=== PATIENT | male | born 1940 | race Asian ===

== ENCOUNTER → 2017-01-14 | Outpatient (CLI) | payer MEDICARE, OTHER ==
--- NOTE | 2017-01-14 12:45 | REP ---
Bilateral carotid artery duplex ultrasound: Peak flow velocity analysis: RIGHT LEFT ICA. Peak flow velocity cm/sec 54 45 ICA Diastolic flow velocity cm/sec 24 18 ICA/CCA Ratio 0.72 0.43 There is intimal thickening in the distal common carotid arteries bilaterally. There is a small shallow atheromatous plaque at the origins of the internal carotid arteries and external carotid arteries bilaterally. Peak flow velocities are normal bilaterally. There is antegrade flow in the vertebral arteries bilaterally. Impression: There is less than 50% narrowing bilaterally. There is no significant stenosis on the right or left. Signed by Cassius Navas MD 01/14/2017 12:36 P
== END ==
LOC: M RAD 11:10
PROVIDERS: ATTEND Ophthalmology
DX: H53.122 Transient visual loss, left eye (principal); H53.19 Other subjective visual disturbances

== ENCOUNTER → 2017-01-23 | Outpatient (CLI) | payer MEDICARE, OTHER ==
--- NOTE | 2017-01-23 15:06 | REP ---
MRI IS THE ORBITS WITHOUT AND WITH IV GADOLINIUM: HISTORY: Vision loss left eye. TECHNIQUE: Axial sagittal and coronal imaging planes are utilized. T1 and T2-weighted sequences include turbo spin echo, spin echo and fat sat post gadolinium enhanced spin echo imaging. 7 mL of intravenous ProHance is administered, half-dose protocol. MRI FINDINGS: There is a small mucous retention cyst in the inferior aspect of the left maxillary sinus. This measures 9 mm. Paranasal sinuses are otherwise unremarkable. No intraorbital mass lesion is seen on either side. Optic chiasm and suprasellar cistern is unremarkable. There is no evidence of optic nerve lesion or abnormal focal optic nerve enhancement. Extraocular muscles are normal in contour signal intensity and course. IMPRESSION: Unremarkable MRI study of the orbits. Signed by Demetrio Balderas MD 01/23/2017 03:19 P
--- NOTE | 2017-01-23 15:07 | REP ---
MRI study of the brain without and with IV gadolinium: History: Vision loss left eye. Comparison CT study brain July 25, 2006. Technique: Axial and sagittal imaging planes are utilized for T1 and T2-weighted scans. Sequences include spin-echo, fast spin echo, FLAIR, and diffusion weighted sequences. Post gadolinium enhanced axial and coronal imaging planes are acquired as well with T1-weighted imaging. The gadolinium enhancement dose is 7 ml of intravenous ProHance , half-dose protocol. MRI findings: No bony calvarial lesion is seen. Craniocervical junction and upper cervical cord are normal in appearance. There is no MR evidence of significant paranasal sinus disease. Minimal mucosal changes are seen in the maxillary sinuses inferiorly. No intraorbital abnormality is seen. There is mild diffuse cerebral atrophy. There are periventricular and subcortical white matter foci of T2 hyperintensity consistent with small vessel changes in the supratentorial brain. There is no evidence of intracranial mass lesion. Diffusion weighted scans show no evidence of acute ischemia. No extra-axial fluid collection or midline shift is seen. No evidence of intracranial hemorrhage. On postcontrast images, enhancement is seen in normal vascular structures. No abnormal gadolinium enhancement is appreciated. Impression: Diffuse atrophy and small vessel changes. No acute intracranial abnormality. Signed by Demetrio Balderas MD 01/23/2017 03:19 P
== END ==
LOC: M RAD 12:30
PROVIDERS: ATTEND Ophthalmology
DX: H53.122 Transient visual loss, left eye (principal); H53.19 Other subjective visual disturbances
CPT/HCPCS: 70543; 70553; A9576

== ENCOUNTER → 2018-02-07 | Outpatient (CLI) | payer MEDICARE, OTHER ==
[2018-02-07 10:13] LABS: COLLAGEN EPINEPHRINE 135 SECONDS (74-162)
== END ==
LOC: M LAB 08:16
DX: H02.423 Myogenic ptosis of bilateral eyelids (principal)
CPT/HCPCS: 36415

== ENCOUNTER 2019-02-27 08:28 | Emergency (ER) | payer MEDICARE, OTHER ==
[~2019-02-27] VITALS: Ht 180.3 cm; Wt 79.5 kg
[2019-02-27] MEDS ORDERED: NEOSPORIN OINT 0.9 GM PKT (FLOOR STOCK) TOP ONE (08:45)
--- NOTE | 2019-02-27 09:38 | REP ---
LEFT HIP, AP PELVIS, THREE VIEWS: HISTORY: Pain. There is no acute fracture or dislocation. The joint spaces are normal in appearance. A calcified density is present adjacent to the left greater trochanter. This represents ligamentous or tendon calcification. IMPRESSION: There is no acute fracture or dislocation. Electronically Signed by Sherman Peter MD 02/27/2019 09:39 A
--- NOTE | 2019-02-27 09:41 | REP ---
LEFT HAND, FOUR VIEWS: HISTORY: Fall. There is no acute fracture or dislocation. There is narrowing of the metacarpal phalangeal, interphalangeal joint of the first digit and second through fifth interphalangeal and distal interphalangeal joints of the second through fifth digits. Osteophytes are present at the interphalangeal joint of the first digit and third through fifth intermediate and second through fifth distal interphalangeal joints. IMPRESSION: There is no acute fracture or dislocation. Electronically Signed by Sherman Peter MD 02/27/2019 09:50 A
--- NOTE | 2019-02-27 10:17 | REP ---
BILATERAL KNEES, NINE VIEWS: HISTORY: Pain. RIGHT KNEE: There is no acute fracture or dislocation. There is minimal narrowing of the medial knee joint space. The lateral knee joint space and patellofemoral joint space are normal in appearance. An osteophyte is present on the patella. IMPRESSION:There is no acute fracture or dislocation. LEFT KNEE: There is no acute fracture or dislocation. There is minimal narrowing of the medial knee joint space. The lateral knee joint space and patellofemoral joint space are normal in appearance. An osteophyte is present on the patella. IMPRESSION:Degenerative change as described above. Electronically Signed by Sherman Peter MD 02/27/2019 10:32 A
[2019-02-27 10:29] VITALS: BP 175/85
[2019-03-11] MEDS ORDERED: ELIQ5TAB PO (12:10)
[2019-03-11] MEDS ORDERED: LABE20TAB PO (12:10)
[2019-03-11] MEDS ORDERED: AZEL0.1S (12:10)
[2019-03-11] MEDS ORDERED: HYDR-3910 PO (12:10)
[2019-03-11] MEDS ORDERED: ASPI1TAB PO (12:10)
[2019-03-11] MEDS ORDERED: SIMV10TA2 PO (12:10)
[2019-03-11] MEDS ORDERED: AMLO5TAB6 PO (12:10)
== END 2019-02-27 10:32 | disposition home or self-care (01) ==
LOC: M ED 08:28
DX: S80.01XA Contusion of right knee, initial encounter (principal); S80.02XA Contusion of left knee, initial encounter; S70.02XA Contusion of left hip, initial encounter; S60.222A Contusion of left hand, initial encounter; W19.XXXA Unspecified fall, initial encounter; Y92.019 Unspecified place in single-family (private) house as the place of occurrence of the external cause

== ENCOUNTER 2019-03-18 10:07 | Day surgery (SDC) | payer MEDICARE, OTHER ==
[~2019-03-18] VITALS: Ht 177.8 cm; Wt 77.3 kg
[~2019-03-18 10:07] MED LIST: AMLO5TAB6 PO; ASPI1TAB PO; AZEL0.1S; ELIQ5TAB PO; HYDR-3910 PO; LABE20TAB PO; LIDOCAINE 2% INJ 100 MG/5 ML SDV (FOR ANES.) As Ordered ONE; NS 1,000 ML IV ONE; PROPOFOL 200 MG/20 ML VIAL As Ordered ONE; SIMV10TA2 PO
--- NOTE | 2019-03-18 11:26 | ROOR ---
Patient Name: Wei Lacy Procedure Date: 03/18/2019 11:02 AM Date of : 1940 Age: 78 Room: [facility] Gender: Male Note Status: Finalized Procedure: Total Colonoscopy to Cecum + Cold Snare Polypectomy Indications: Screening for colorectal malignant neoplasm Providers: Az Jones MD Referring MD: Ethan Mcmillan MD Requesting Provider: Medicines: Monitored Anesthesia Care Complications: No immediate complications. Procedure: Pre-Anesthesia Assessment: - The heart rate, respiratory rate, oxygen saturations, blood pressure, adequacy of pulmonary ventilation, and response to care were monitored throughout the procedure. The Colonoscope was introduced through the anus and advanced to the cecum, identified by appendiceal orifice and ileocecal valve. The colonoscopy was performed without difficulty. The patient tolerated the procedure well. The quality of the bowel preparation was excellent. Findings: The perianal and digital rectal examinations were normal. Non-bleeding internal hemorrhoids were found during retroflexion. The hemorrhoids were small and Grade I (internal hemorrhoids that do not prolapse). A small polyp was found in the mid ascending colon. The polyp was sessile. The polyp was removed with a cold snare. Resection and retrieval were complete. A small polyp was found at 60 cm proximal to the anus. The polyp was sessile. The polyp was removed with a cold snare. Resection and retrieval were complete. A small polyp was found in the rectum. The polyp was sessile. The polyp was removed with a jumbo cold forceps. Resection and retrieval were complete. The exam was otherwise without abnormality on direct and retroflexion views. Impression: - Non-bleeding internal hemorrhoids. - One small polyp in the mid ascending colon, removed with a cold snare. Resected and retrieved. - One small polyp at 60 cm proximal to the anus, removed with a cold snare. Resected and retrieved. - One small polyp in the rectum, removed with a jumbo cold forceps. Resected and retrieved. - The examination was otherwise normal on direct and retroflexion views. - The exam was otherwise normal to the cecum. Recommendation: - Patient has a contact number available for emergencies. The signs and symptoms of potential delayed complications were discussed with the patient. Return to normal activities tomorrow. Written discharge instructions were provided to the patient. - Discharge patient to home. - Continue present medications. - Await pathology results. - Telephone GI clinic for pathology results in 1 week. - Check Portal Online for Path Results.([email or web address] - Repeat colonoscopy for symptoms only. - Return to referring physician. - The findings and recommendations were discussed with the patient's family. Az Jones MD Az Jones MD 03/18/2019 11:25:41 AM Electronically signed by Az Jones MD Number of Addenda: 0 Note Initiated On: 03/18/2019 11:02 AM Estimated Blood Loss: Estimated blood loss: none.
[2019-03-18 11:45] VITALS: BP 187/83
== END 2019-03-18 11:54 | disposition home or self-care (01) ==
LOC: M OPP 10:07
PROVIDERS: ATTEND Internal Medicine Gastroenterology
DX: D12.2 Benign neoplasm of ascending colon (principal); K62.1 Rectal polyp; K64.0 First degree hemorrhoids; Z12.11 Encounter for screening for malignant neoplasm of colon

== ENCOUNTER → 2019-07-06 | Outpatient (CLI) | payer MEDICARE, OTHER ==
[~2019-07-06] MED LIST changes: +ASPI-523 PO; -ASPI1TAB PO; -LIDOCAINE 2% INJ 100 MG/5 ML SDV (FOR ANES.) As Ordered ONE; -NS 1,000 ML IV ONE; -PROPOFOL 200 MG/20 ML VIAL As Ordered ONE
[2019-07-06 08:10] LABS: BASO % 0.6 % (0.0-1.0); EOS # 0.2 10^3/uL (0.0-0.5); EOS % 4.1 % (0.0-3.0); HEMATOCRIT 41.1 % (42.0-52.0); HEMOGLOBIN 13.5 g/dl (13.5-17.5); LYMPH # 1.6 10^3/uL (1.5-5.0); LYMPH % 33.9 % (24.0-44.0); MEAN CORPUSCULAR HEMOGLOBIN 31.8 pg (27.0-33.0); MEAN CORPUSCULAR HGB CONC 32.8 g/dl (32.0-36.5); MEAN CORPUSCULAR VOLUME 96.9 fl (80.0-96.0); MONO # 0.5 10^3/uL (0.0-0.8); MONO % 9.3 % (0.0-5.0); NEUTROPHILS # 2.5 10^3/uL (1.5-8.5); NEUTROPHILS % 51.7 % (36.0-66.0); PLATELET COUNT, AUTOMATED 232 10^3/uL (150-450); RED BLOOD COUNT 4.24 10^6/uL (4.30-6.10); WHITE BLOOD COUNT 4.8 10^3/uL (4.0-10.0)
[2019-07-06 08:31] LABS: HEMOGLOBIN A1c 5.5 %
[2019-07-06 08:43] LABS: ALBUMIN 3.7 GM/DL (3.2-5.2); CALCIUM LEVEL 9.3 MG/DL (8.8-10.2); CREATININE FOR GFR 1.34 MG/DL (0.70-1.30); GLOMERULAR FILTRATION RATE 54.7 (>42); POTASSIUM SERUM 4.6 MEQ/L (3.5-5.1); TOTAL PROTEIN 7.2 GM/DL (6.4-8.2)
== END ==
LOC: M LAB 07:15
PROVIDERS: ATTEND Family Medicine
DX: I10 Essential (primary) hypertension (principal)

== ENCOUNTER 2020-03-05 13:31 | Emergency (ER) | payer MEDICARE, OTHER ==
[~2020-03-05] VITALS: Ht 180.3 cm; Wt 72.7 kg
[~2020-03-05 13:31] MED LIST changes: -SIMV10TA2 PO; +SIMV10TA21 PO
[2020-03-05 13:32] VITALS: BP 177/76
[2020-03-05] MEDS ORDERED: BOOSTRIX/ADACEL VACCINE (DIPHTH/PERTUSS/ACELL/TETANUS) 0.5ML SYR IM ONE (14:15)
--- NOTE | 2020-03-08 09:54 | REP ---
REASON: Pain in the neck after trauma. COMPARISON: None. Preliminary report given by Dr. Bragg. Motion artifact obscures the fine detail. There is a minimal 1-2 mm anterolisthesis C4 on C5. There is degenerative disc space narrowing at every level with mild anterior and posterior osteophytic ridging. The facet joints are well-aligned bilaterally. Vertebral body height and alignment is within normal limits. There is no evidence of acute fracture. There is no abnormal paraspinal soft tissue swelling. Degenerative changes are seen involving the facet joints and uncovertebral joints at multiple levels bilaterally. IMPRESSION: Chronic changes and exam limitations as described above. There is no evidence of acute fracture. Electronically Signed by Manfred Barrow DO 03/08/2020 12:25 P
--- NOTE | 2020-03-08 10:01 | REP ---
REASON FOR EXAM: Trauma. Comparison examination is 07/25/2006. Preliminary report was given by Dr. Bragg. The ventricles and sulci are within normal limits and essentially unchanged. The deep cerebral white matter is within normal limits and essentially unchanged. There is no shift of the midline structures. There are no acute extra-axial fluid collections. There is no change in the posterior fossa. There is no evidence of an acute intracranial hemorrhagic or nonhemorrhagic event. There is no skull fracture. The images paranasal sinuses and mastoid air cells are essentially unchanged remaining clear. IMPRESSION: No acute disease. Mild age-related changes status quo. Electronically Signed by Manfred Barrow DO 03/08/2020 12:25 P
== END 2020-03-05 14:40 | disposition home or self-care (01) ==
LOC: M ED 13:31
DX: S00.01XA Abrasion of scalp, initial encounter (principal); S50.311A Abrasion of right elbow, initial encounter; S50.312A Abrasion of left elbow, initial encounter; W11.XXXA Fall on and from ladder, initial encounter; Y99.8 Other external cause status; Y92.9 Unspecified place or not applicable; I10 Essential (primary) hypertension; F03.90 Unspecified dementia, unspecified severity, without behavioral disturbance, psychotic disturbance, mood disturbance, and anxiety; Z79.01 Long term (current) use of anticoagulants; Z79.82 Long term (current) use of aspirin; Z79.899 Other long term (current) drug therapy; Z87.891 Personal history of nicotine dependence

== ENCOUNTER → 2020-03-16 | Outpatient (CLI) | payer MEDICARE, OTHER ==
[2020-03-16 08:00] LABS: HEMATOCRIT 39.2 % (42.0-52.0); HEMOGLOBIN 13.2 g/dl (13.5-17.5); MEAN CORPUSCULAR HEMOGLOBIN 31.7 pg (27.0-33.0); MEAN CORPUSCULAR HGB CONC 33.7 g/dl (32.0-36.5); PLATELET COUNT, AUTOMATED 259 10^3/uL (150-450); RED BLOOD COUNT 4.17 10^6/uL (4.30-6.10); WHITE BLOOD COUNT 5.8 10^3/uL (4.0-10.0)
[2020-03-16 08:20] LABS: ALBUMIN 3.7 GM/DL (3.2-5.2); ALT/SGPT 29 U/L (12-78); BILIRUBIN,TOTAL 1.1 MG/DL (0.2-1.0); BLOOD UREA NITROGEN 14 MG/DL (7-18); CALCIUM LEVEL 8.9 MG/DL (8.8-10.2); CARBON DIOXIDE LEVEL 29 MEQ/L (21-32); CHLORIDE LEVEL 108 MEQ/L (98-107); CHOLESTEROL LEVEL 162 MG/DL (<200); CREATININE FOR GFR 1.11 MG/DL (0.70-1.30); GLOMERULAR FILTRATION RATE > 60.0 (>35); GLUCOSE, FASTING 95 MG/DL (70-100); HDL CHOLESTEROL 50 MG/DL (>40); LDL CHOLESTEROL 91 MG/DL (<100); NON-HDL-C 112 MG/DL; POTASSIUM SERUM 4.2 MEQ/L (3.5-5.1); SODIUM LEVEL 141 MEQ/L (136-145); TOTAL PROTEIN 7.4 GM/DL (6.4-8.2); TRIGLYCERIDES LEVEL 107 MG/DL (<150)
== END ==
LOC: M LAB 07:15
PROVIDERS: ATTEND Family Medicine
DX: I10 Essential (primary) hypertension (principal)

== ENCOUNTER → 2020-09-13 | Outpatient (CLI) | payer MEDICARE, OTHER ==
[~2020-09-13] MED LIST changes: +AMLO1TAB24 PO; -AMLO5TAB6 PO
[2020-09-13 09:38] LABS: HEMATOCRIT 43.4 % (42.0-52.0); HEMOGLOBIN 13.9 g/dl (13.5-17.5); MEAN CORPUSCULAR HEMOGLOBIN 30.7 pg (27.0-33.0); MEAN CORPUSCULAR VOLUME 95.8 fl (80.0-96.0); PLATELET COUNT, AUTOMATED 249 10^3/uL (150-450); RED BLOOD COUNT 4.53 10^6/uL (4.30-6.10); WHITE BLOOD COUNT 5.2 10^3/uL (4.0-10.0)
[2020-09-13 10:06] LABS: ALBUMIN 3.9 GM/DL (3.2-5.2); BILIRUBIN,TOTAL 0.8 MG/DL (0.2-1.0); CALCIUM LEVEL 9.4 MG/DL (8.8-10.2); CREATININE FOR GFR 1.27 MG/DL (0.70-1.30); GLOMERULAR FILTRATION RATE 58.1 (>35); POTASSIUM SERUM 4.8 MEQ/L (3.5-5.1); PROSTATIC SPECIFIC AG MONITOR 4.47 NG/ML (< 4.00); TOTAL PROTEIN 7.5 GM/DL (6.4-8.2)
== END ==
LOC: M LAB 09:06
PROVIDERS: ATTEND Family Medicine
DX: N40.0 Benign prostatic hyperplasia without lower urinary tract symptoms (principal)

== ENCOUNTER → 2021-03-07 | Outpatient (CLI) | payer MEDICARE, OTHER ==
[2021-03-07 11:48] LABS: HEMATOCRIT 43.4 % (42.0-52.0); HEMOGLOBIN 14.5 g/dl (13.5-17.5); MEAN CORPUSCULAR HEMOGLOBIN 31.9 pg (27.0-33.0); MEAN CORPUSCULAR HGB CONC 33.4 g/dl (32.0-36.5); MEAN CORPUSCULAR VOLUME 95.4 fl (80.0-96.0); PLATELET COUNT, AUTOMATED 235 10^3/uL (150-450); RED BLOOD COUNT 4.55 10^6/uL (4.30-6.10); WHITE BLOOD COUNT 8.6 10^3/uL (4.0-10.0)
[2021-03-07 12:29] LABS: APPEARANCE, URINE CLEAR (CLEAR); BACTERIA, URINE AUTO NEGATIVE (NEGATIVE); BILIRUBIN, URINE AUTO NEGATIVE (NEGATIVE); BLOOD, URINE BLOOD NEGATIVE (NEGATIVE); COLOR, URINE YELLOW (YELLOW); GLUCOSE, URINE (UA) AUTO NEGATIVE (NEGATIVE); KETONE, URINE AUTO NEGATIVE (NEGATIVE); LEUKOCYTE ESTERASE, URINE AUTO NEGATIVE (NEGATIVE); MUCUS, URINE SMALL (NEGATIVE); NITRITE, URINE AUTO NEGATIVE (NEGATIVE); PROTEIN, URINE AUTO NEGATIVE (NEGATIVE); RBC, URINE AUTO 1 /HPF (0-3); SPECIFIC GRAVITY URINE AUTO 1.015 (1.002-1.035); SQUAMOUS EPITHELIAL CELL UR AU 0 /HPF (0-6); UROBILINOGEN, URINE AUTO 0.2 mg/dL (0.0-2.0); WBC, URINE AUTO 1 /HPF (0-3)
[2021-03-07 12:30] LABS: ALBUMIN 3.9 GM/DL (3.2-5.2); ALT/SGPT 27 U/L (12-78); BILIRUBIN,TOTAL 1.7 MG/DL (0.2-1.0); BLOOD UREA NITROGEN 16 MG/DL (7-18); CALCIUM LEVEL 9.2 MG/DL (8.8-10.2); CARBON DIOXIDE LEVEL 25 MEQ/L (21-32); CHLORIDE LEVEL 109 MEQ/L (98-107); CREATININE FOR GFR 1.01 MG/DL (0.70-1.30); GLOMERULAR FILTRATION RATE > 60.0 (>35); GLUCOSE, FASTING 88 MG/DL (70-100); POTASSIUM SERUM 4.1 MEQ/L (3.5-5.1); PROSTATIC SPECIFIC AG MONITOR 4.83 NG/ML (< 4.00); SODIUM LEVEL 141 MEQ/L (136-145); TOTAL PROTEIN 7.5 GM/DL (6.4-8.2)
== END ==
LOC: M LAB 08:58
PROVIDERS: ATTEND Family Medicine
DX: R35.0 Frequency of micturition (principal); N40.1 Benign prostatic hyperplasia with lower urinary tract symptoms; I10 Essential (primary) hypertension

== ENCOUNTER → 2022-04-13 | Outpatient (CLI) | payer MEDICARE, OTHER ==
[2022-04-13 10:10] LABS: HEMOGLOBIN 15.5 g/dl (13.5-17.5); MEAN CORPUSCULAR HEMOGLOBIN 31.1 pg (27.0-33.0); MEAN CORPUSCULAR VOLUME 94.4 fl (80.0-96.0); RED BLOOD COUNT 4.98 10^6/uL (4.30-6.10); WHITE BLOOD COUNT 5.6 10^3/uL (4.0-10.0)
[2022-04-13 10:40] LABS: ALT/SGPT 27 U/L (12-78); BILIRUBIN,TOTAL 1.2 MG/DL (0.2-1.0); BLOOD UREA NITROGEN 12 MG/DL (7-18); CALCIUM LEVEL 9.4 MG/DL (8.8-10.2); CARBON DIOXIDE LEVEL 24 MEQ/L (21-32); CHLORIDE LEVEL 111 MEQ/L (98-107); CHOLESTEROL LEVEL 168 MG/DL (<200); CHOLESTEROL RISK RATIO 3.111 (<5); CREATININE FOR GFR 1.15 MG/DL (0.70-1.30); GLOMERULAR FILTRATION RATE > 60.0 (>35); GLUCOSE, FASTING 102 MG/DL (70-100); HDL CHOLESTEROL 54 MG/DL (>40); LDL CHOLESTEROL 87 MG/DL (<100); NON-HDL-C 114 MG/DL; POTASSIUM SERUM 4.1 MEQ/L (3.5-5.1); PROSTATIC SPECIFIC AG MONITOR 3.99 NG/ML (< 4.00); SODIUM LEVEL 141 MEQ/L (136-145); TRIGLYCERIDES LEVEL 135 MG/DL (<150)
== END ==
LOC: M LAB 09:22
PROVIDERS: ATTEND Family Medicine
DX: N40.1 Benign prostatic hyperplasia with lower urinary tract symptoms (principal); I10 Essential (primary) hypertension

== ENCOUNTER → 2022-08-16 | Outpatient (CLI) | payer MEDICARE, OTHER | LOC: M RAD 12:11 | PROVIDERS: ATTEND Physician Assistant | DX: R42 Dizziness and giddiness (principal); R09.89 Other specified symptoms and signs involving the circulatory and respiratory systems ==

== ENCOUNTER → 2023-04-12 | Outpatient (CLI) | payer MEDICARE, OTHER ==
[2023-04-12 08:29] LABS: BASO % 0.7 % (0.0-1.0); EOS # 0.2 10^3/uL (0.0-0.5); HEMATOCRIT 44.1 % (42.0-52.0); HEMOGLOBIN 14.7 g/dl (13.5-17.5); LYMPH # 2.1 10^3/uL (1.5-5.0); LYMPH % 35.5 % (24.0-44.0); MEAN CORPUSCULAR HEMOGLOBIN 31.3 pg (27.0-33.0); MEAN CORPUSCULAR HGB CONC 33.3 g/dl (32.0-36.5); MONO # 0.6 10^3/uL (0.0-0.8); MONO % 9.2 % (2.0-8.0); NEUTROPHILS % 50.3 % (36.0-66.0); PLATELET COUNT, AUTOMATED 222 10^3/uL (150-450); RED BLOOD COUNT 4.69 10^6/uL (4.30-6.10)
[2023-04-12 08:58] LABS: ALBUMIN 3.8 G/DL (3.2-5.2); BILIRUBIN,TOTAL 1.3 MG/DL (0.3-1.2); CHOLESTEROL RISK RATIO 3.35 (<5); CREATININE FOR GFR 1.42 MG/DL (0.70-1.30); GLOMERULAR FILTRATION RATE 50.7 (>35); HDL CHOLESTEROL 44.4 MG/DL (>40); LDL CHOLESTEROL 86.4 MG/DL (<100); NON-HDL-C 104.6 MG/DL; POTASSIUM SERUM 4.4 MMOL/L (3.5-5.1)
== END ==
LOC: M LAB 08:05
PROVIDERS: ATTEND Family Medicine
DX: I10 Essential (primary) hypertension (principal)

== ENCOUNTER → 2024-04-21 | Outpatient (CLI) | payer MEDICARE, OTHER ==
[~2024-04-21] MED LIST changes: -HYDR-3910 PO; +HYDR25TA87 PO
[2024-04-21 08:38] LABS: BASO % 0.6 % (0.0-1.0); EOS # 0.3 10^3/uL (0.0-0.5); EOS % 5.4 % (0.0-3.0); HEMATOCRIT 41.3 % (42.0-52.0); HEMOGLOBIN 13.9 g/dl (13.5-17.5); LYMPH % 38.3 % (24.0-44.0); MEAN CORPUSCULAR HEMOGLOBIN 31.9 pg (27.0-33.0); MEAN CORPUSCULAR HGB CONC 33.7 g/dl (32.0-36.5); MEAN CORPUSCULAR VOLUME 94.7 fl (80.0-96.0); MONO # 0.5 10^3/uL (0.0-0.8); MONO % 10.2 % (2.0-8.0); NEUTROPHILS # 2.4 10^3/uL (1.5-8.5); NEUTROPHILS % 45.1 % (36.0-66.0); PLATELET COUNT, AUTOMATED 241 10^3/uL (150-450); RED BLOOD COUNT 4.36 10^6/uL (4.30-6.10); WHITE BLOOD COUNT 5.2 10^3/uL (4.0-10.0)
[2024-04-21 09:11] LABS: ALBUMIN 3.6 G/DL (3.2-5.2); CHOLESTEROL RISK RATIO 3.72 (<5); CREATININE FOR GFR 1.25 MG/DL (0.70-1.30); GLOMERULAR FILTRATION RATE 58.6 (>35); HDL CHOLESTEROL 40.5 MG/DL (>40); LDL CHOLESTEROL 85.5 MG/DL (<100); NON-HDL-C 110.5 MG/DL; POTASSIUM SERUM 4.3 MMOL/L (3.5-5.1)
[2024-04-21 09:25] LABS: BILIRUBIN,TOTAL 1.3 MG/DL (0.3-1.2); CALCIUM LEVEL 8.9 MG/DL (8.3-10.6); TOTAL PROTEIN 6.7 G/DL (5.7-8.2)
== END ==
LOC: M LAB 07:47
PROVIDERS: ATTEND Family Medicine
DX: I10 Essential (primary) hypertension (principal)

== ENCOUNTER → 2024-08-14 | Outpatient (CLI) | payer MEDICARE, OTHER | LOC: M PLAIMG 07:27 | PROVIDERS: ATTEND Physician Assistant | DX: I77.810 Thoracic aortic ectasia (principal); I08.0 Rheumatic disorders of both mitral and aortic valves ==

== ENCOUNTER 2024-08-30 11:47 | Emergency (ER) | payer MEDICARE, OTHER ==
[~2024-08-30] VITALS: Ht 177.8 cm; Wt 81.2 kg
[~2024-08-30 11:47] MED LIST changes: -AZEL0.1S; +AZEL137S8
[2024-08-30 13:27] LABS: BASO % 0.4 % (0.0-1.0); EOS # 0.1 10^3/uL (0.0-0.5); EOS % 1.5 % (0.0-3.0); HEMATOCRIT 38.9 % (42.0-52.0); HEMOGLOBIN 12.8 g/dl (13.5-17.5); LYMPH # 1.4 10^3/uL (1.5-5.0); MEAN CORPUSCULAR HEMOGLOBIN 30.6 pg (27.0-33.0); MEAN CORPUSCULAR HGB CONC 32.9 g/dl (32.0-36.5); MEAN CORPUSCULAR VOLUME 93.1 fl (80.0-96.0); MONO # 0.7 10^3/uL (0.0-0.8); MONO % 8.7 % (2.0-8.0); NEUTROPHILS # 6.2 10^3/uL (1.5-8.5); NEUTROPHILS % 72.9 % (36.0-66.0); PLATELET COUNT, AUTOMATED 305 10^3/uL (150-450); RED BLOOD COUNT 4.18 10^6/uL (4.30-6.10); WHITE BLOOD COUNT 8.4 10^3/uL (4.0-10.0)
[2024-08-30 13:41] LABS: BILIRUBIN,DIRECT 0.5 MG/DL (<0.4); BILIRUBIN,TOTAL 1.2 MG/DL (0.3-1.2); TOTAL PROTEIN 7.2 G/DL (5.7-8.2)
[2024-08-30] MEDS: LEVALBUTEROL 1.25MG 0.5ML CONCENTRATE NEB NEB PRN (13:45)
[2024-08-30] MEDS ORDERED: AZIT-12 PO (14:10)
[2024-08-30 14:18] VITALS: BP 110/74; TEMP 98.8; O2SAT 90
== END 2024-08-30 14:35 | disposition home or self-care (01) ==
LOC: M ED 11:47
DX: J15.7 Pneumonia due to Mycoplasma pneumoniae (principal); I48.91 Unspecified atrial fibrillation; I10 Essential (primary) hypertension; Z79.01 Long term (current) use of anticoagulants; Z79.82 Long term (current) use of aspirin; Z79.899 Other long term (current) drug therapy

== ENCOUNTER → 2025-08-06 | Outpatient (CLI) | payer MEDICARE, OTHER ==
[~2025-08-06] MED LIST changes: +AZIT-12 PO
[2025-08-06 09:41] LABS: PLATELET COUNT, AUTOMATED 224 10^3/uL (150-450)
[2025-08-06 10:12] LABS: ALT/SGPT 23.0 U/L (7.0-40); AST/SGOT 26.0 U/L (<34); CALCIUM LEVEL 8.9 MG/DL (8.3-10.6); CARBON DIOXIDE LEVEL 24.0 MMOL/L (20-31); CHLORIDE LEVEL 106.0 MMOL/L (98-107); CHOLESTEROL LEVEL 160.0 MG/DL (<200); CHOLESTEROL RISK RATIO 3.66 (<5); CREATININE FOR GFR 1.14 MG/DL (0.70-1.30); GLOMERULAR FILTRATION RATE 63.0 (>35); LDL CHOLESTEROL 85.1 MG/DL (<100); MAGNESIUM LEVEL 1.8 MG/DL (1.8-2.4); NON-HDL-C 116.3 MG/DL; POTASSIUM SERUM 3.8 MMOL/L (3.5-5.1); SODIUM LEVEL 141.0 MMOL/L (136-145); TRIGLYCERIDES LEVEL 156.0 MG/DL (<150)
== END ==
LOC: M LAB 08:35
PROVIDERS: ATTEND Physician Assistant
DX: I48.0 Paroxysmal atrial fibrillation (principal); E78.00 Pure hypercholesterolemia, unspecified; I11.9 Hypertensive heart disease without heart failure